=== PATIENT | male | born 1995 | race Caucasian/White ===

== ENCOUNTER 2018-11-03 13:47 | Emergency (ER) | payer MEDICAID ==
[~2018-11-03] VITALS: Ht 182.9 cm; Wt 163.6 kg
[2018-11-03 13:59] VITALS: BP 129/87
== END 2018-11-03 15:41 | disposition home or self-care (01) ==
LOC: ER 13:49
DX: R07.89 Other chest pain (principal); Z72.0 Tobacco use
CPT/HCPCS: 93005; 99283